=== PATIENT | male | born 1960 | race Caucasian/White ===

== ENCOUNTER 2019-11-18 14:07 | Outpatient (CLI) | payer OTHER ==
--- NOTE | 2019-11-18 15:13 | XRAY Report ---
Reason: MASS PLANTAR L FOOT Procedure Date: 11/18/2019 Accession Number: [id number] / [id number] Procedure: XR - Foot 3 View LT CPT Code: Final Report FULL RESULT: PROCEDURE: Foot 3 View LT INDICATIONS: MASS PLANTAR L FOOT TECHNIQUE: 3 views of the foot were acquired. COMPARISON: None FINDINGS: Bones: There is mild hallux valgus. Mild first MTP joint osteoarthritic changes are seen. No fractures or dislocations. No suspicious bony lesions. Soft tissues: No tibiotalar joint effusion. Achilles tendon appears normal. IMPRESSION: Mild hallux valgus and mild first MTP joint osteoarthritis. No fracture or dislocation. No suspicious bony lesion. If indicated, MRI of left foot can be done for further evaluation of soft tissue mass. Reviewed by: Ortega Coughlin MD on 11/18/2019 3:11 PM PDT Approved by: Ortega Coughlin MD on 11/18/2019 3:11 PM PDT Station ID: [id number]
== END 2019-11-18 14:08 | disposition home or self-care (01) ==
LOC: DI 14:07
PROVIDERS: ATTEND Podiatrist
DX: M20.12 Hallux valgus (acquired), left foot (principal); M19.072 Primary osteoarthritis, left ankle and foot

== ENCOUNTER 2019-11-21 12:36 | Outpatient (CLI) | payer OTHER | END 2019-11-21 12:37 | disposition home or self-care (01) | LOC: LAB 12:36 | PROVIDERS: ATTEND Podiatrist | DX: I10 Essential (primary) hypertension (principal); R22.42 Localized swelling, mass and lump, left lower limb; R73.9 Hyperglycemia, unspecified; R94.5 Abnormal results of liver function studies; E78.5 Hyperlipidemia, unspecified; Z53.9 Procedure and treatment not carried out, unspecified reason | CPT/HCPCS: 36415; 82565 ==

== ENCOUNTER 2019-11-22 10:59 | Outpatient (CLI) | payer OTHER ==
[2019-11-22 11:23] LABS: BASOPHILS % (AUTO) 0.6 %; EOSINOPHILS # (AUTO) 0.2 10^3/uL (0.0-0.7); EOSINOPHILS % (AUTO) 4.8 %; HGB - HEMOGLOBIN 16.1 g/dL (14.0-18.0); LYMPHOCYTES # (AUTO) 1.3 10^3/uL (1.5-3.5); LYMPHOCYTES % (AUTO) 35.4 %; MEAN CORPUSCULAR HEMOGLOBIN 30.4 pg (27.0-31.0); MEAN CORPUSCULAR HGB CONC 33.6 g/dL (32.0-36.0); MEAN CORPUSCULAR VOLUME 90.4 fL (80.0-94.0); MEAN PLATELET VOLUME 9.4 fL (7.4-11.4); MONOCYTES # (AUTO) 0.3 10^3/uL (0.0-1.0); MONOCYTES % (AUTO) 8.5 %; NEUTROPHILS # (AUTO) 1.8 10^3/uL (1.5-6.6); NEUTROPHILS % (AUTO) 50.7 %; PLT - PLATELET COUNT 198 10^3/uL (130-450); RED CELL DISTRIBUTION WIDTH 12.8 % (12.0-15.0); WHITE BLOOD COUNT 3.5 x10^3/uL (4.8-10.8)
[2019-11-22 11:40] LABS: ALBUMIN 4.8 g/dL (3.2-5.5); ALBUMIN/GLOBULIN RATIO 1.6 (1.0-2.2); ALKALINE PHOSPHATASE 53 IU/L (42-121); ALT ALANINE AMINOTRANSFERASE 39 IU/L (10-60); AST ASPARTATE AMINOTRANSFERASE 25 IU/L (10-42); BILIRUBIN,TOTAL 1.4 mg/dL (0.2-1.0); BUN - BLOOD UREA NITROGEN 22 mg/dL (6-20); CALCIUM 9.5 mg/dL (8.5-10.3); CARBON DIOXIDE - CO2 27 mmol/L (21-32); CHLORIDE 100 mmol/L (101-111); CHOL/HDL RATIO 3.9 (<5.0); CHOLESTEROL 216 mg/dL; CREATININE 0.9 mg/dL (0.6-1.2); GLUCOSE 120 mg/dL (70-100); HDL CHOLESTEROL 56 mg/dL; LDL CHOLESTEROL,CALCULATED 139 mg/dL; LDL/HDL RATIO 2.5 (<3.6); SODIUM 139 mmol/L (135-145); TOTAL PROTEIN 7.8 g/dL (6.7-8.2); VLDL CHOLESTEROL 21 mg/dL
== END 2019-11-22 11:00 | disposition home or self-care (01) ==
LOC: LAB 10:59
PROVIDERS: ATTEND Family Medicine
DX: R73.9 Hyperglycemia, unspecified (principal); R94.5 Abnormal results of liver function studies; E78.5 Hyperlipidemia, unspecified; I10 Essential (primary) hypertension
CPT/HCPCS: 36415; 80053; 80061; 83721; 84443; 85025

== ENCOUNTER 2019-11-26 07:05 | Outpatient (CLI) | payer OTHER ==
[2019-11-26] MEDS ORDERED: GADOBUTROL 10 MMOL/10 ML VIAL ONE (07:41)
[2019-11-26] MEDS ORDERED: GADOBUTROL 10 MMOL/10 ML VIAL IVP ONE (08:26)
--- NOTE | 2019-11-26 09:40 | MRI Report ---
PROCEDURE: Foot LT W/WO INDICATIONS: MASS ON FOOT CONTRAST: IV CONTRAST: Gadavist ml: 10 TECHNIQUE: Noncontrast sagittal T1 spin echo and T2 fast spin echo with fat saturation, long-axis T1 spin echo a nd T2 fast spin echo with fat saturation; short-axis T1 spin echo, proton density fast spin echo, and T2 fast spin echo with fat saturation through the forefoot. Post-contrast short axis, long axis, an d sagittal T1 spin echo with fat saturation through the forefoot. COMPARISON: None. FINDINGS: Image quality: Motion degraded examination. Bones and joints: No suspicious osseous enhancement. No bone marrow contusions or metatarsal stress fractures. The sesamoid bones appear in expected positions, without internal edema. Moderate first metatarsophalangeal joint degeneration. There is a cyst versus erosion seen at the medial aspect of t he first metatarsal head No intraosseous lesions. Diffuse hindfoot and midfoot joint degeneration. Soft tissues: Within the medial aspect of the forefoot in the location marked by the fiducial, there is underlying subcutaneous ill-defined, masslike enhancement as well as involvement of the medial asp ect of the plantar fascia. This measures approximately 3.9 x 0.9 cm on short axis postcontrast enhanc ed pulse sequence. This measures approximately 6.2 cm in length on long axis postcontrast enhanced pu lse sequence. IMPRESSION: Ill-defined enhancement and large masslike signal change involving the medial plantar fascia at the l evel of the base of the metatarsals, in the area marked by the fiducial placed on the skin surface. A dditional ill-defined enhancement extends toward the medial aspect of the foot and closely opposes or involves the abductor hallucis muscle. Differential includes plantar fibromatosis and/or superimpose d plantar fasciitis, among other possibilities. Technically cannot exclude malignant or benign aggres sive soft tissue neoplasm. Recommend surgical consultation and management. Moderate first MTP joint degeneration, with osteolytic marrow signal change along the medial aspect o f the first metatarsal head, possibly cyst versus erosion. Reviewed by: Ankit Shepherd MD on 11/26/2019 9:39 AM PDT Approved by: Ankit Shepherd MD on 11/26/2019 9:39 AM PDT Station ID: [id number]
== END 2019-11-26 07:06 | disposition home or self-care (01) ==
LOC: DI 07:05
PROVIDERS: ATTEND Podiatrist
DX: R93.6 Abnormal findings on diagnostic imaging of limbs (principal); M19.072 Primary osteoarthritis, left ankle and foot; R22.42 Localized swelling, mass and lump, left lower limb
CPT/HCPCS: 73720; A9585